=== PATIENT | female | born 1990 | race Caucasian/White ===

== ENCOUNTER 2019-09-04 03:46 | Emergency (ER) | payer SELFPAY ==
[~2019-09-04] VITALS: Ht 152.4 cm; Wt 61.2 kg
[2019-09-04 03:48] VITALS: BP 121/75
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
[2019-09-04 04:05] VITALS: BP 121/75
--- NOTE | 2019-09-04 04:05 | NUR ---
Note julian in EDM - 09/04/19 at 0423 by [facility] Patient discharged with v/s stable. Written and verbal after care instructions given and explained. Patient verbalized understanding. Ambulatory with steady gait. All questions addressed prior to discharge. Advised to follow up with PMD.
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
== END 2019-09-04 04:05 | disposition home or self-care (01) ==
LOC: MED 03:46
DX: Z04.1 Encounter for examination and observation following transport accident (principal); J45.909 Unspecified asthma, uncomplicated
CPT/HCPCS: 99283